=== PATIENT | female | born 1950 | race Two or more races ===

== ENCOUNTER → 2016-10-11 | Outpatient (CLI) | payer MEDICARE, BC ==
[~2016-10-11] MED LIST: ALEN35TA22 PO; AMLO-145 PO; ASPI81TA3 PO; AZAT50TA24 PO; BENA40TA54 PO; CALC1TAB75 PO; GABA300C16 PO; IBUP-1542 PO; IMU50 PO; MECL-77 PO; METO-53 PO; OMEP40CA3 PO; ONDA4TAB95 PO; TIOT18CA IH; [UNRECOGNIZED DRUG - OTHER]
--- NOTE | 2016-10-11 14:31 | RADRPT ---
PROCEDURE: XR pelvis/right hip. CLINICAL INDICATION: Hip pain TECHNIQUE: AP pelvis/lateral right hip view performed. COMPARISON: No prior studies are available for comparison. FINDINGS: There is a right total hip replacement. There is no evidence of loosening of the prosthesis. No hard waters failure is identified. There is mild to moderate left hip osteoarthrosis. This is associated with joint space narrowing, radford bchondral sclerosis and osteophytosis. There is diffuse osteopenia. There are old post traumatic ch anges involving the symphysis pubis. No acute fractures or osseous lesions are identified. The soft tissues are unremarkable. IMPRESSION: Right total hip replacement. Mild to moderate left hip osteoarthrosis. Diffuse osteopenia RPTAT: HGDB .Chris Moreno MD, Date Time Electronically viewed and signed by .Chris Moreno MD, on 10/11/2016 14:31 .B/
--- NOTE | 2016-10-11 19:05 | HKNOTE ---
DATE OF SERVICE: REQUESTING PROVIDER: Dr. Riso Andersen. MAIN COMPLAINT: Pain in the right hip. HISTORY OF MAIN COMPLAINT: The patient is a 66-year-old female who underwent a right total hip repl acement [address] Dumont. She states the hip was "fine" for the first 2 to 3 months. Th ereafter she developed pain in her right buttocks. Pain radiating down the back of the leg three-qu arters of the way down to the knee. No radiation below the knee. She has been back to see Dr. Dumont several times. He has not been able to give her a satisfactor y explanation as to the cause or treatment for the pain that she is having. She states that she is now worse than she was before surgery, and she is sorry she had the surgery. PRESENT COMPLAINTS: The patient gets pain in the right hip on waking up every morning. The pain se ems to improve a great deal around about 10 o'clock or so in the morning. She gets pain every day. Pain is aggravated by straining at stool, weightbearing, walking, and stair climbing. She occasion ally gets rest pain, but is not woken up with pain in the middle of the night. She has tried taking various pain medications, including tramadol, which she currently takes at the rate of 2 to 3 table ts a day. This is described by chemistry research assistant, Dr. Burks. She occasionally gets pain in her lower back. She has never had an MRI scan of her lumbar spine. S he has no numbness or tingling in her legs. She uses a cane most of the time, including inside the house. She can walk about 2 blocks using a cane without stopping. She limps most of the time. PAST ORTHOPEDIC HISTORY: Right total hip replacement [address] Dumont at [facility]. PRIOR CORTISONE INTAKE: The patient was put on prednisone, "for my thyroid." She taken 10 mg a day , and she stopped 4 days ago. ALCOHOL INTAKE: None. BLOOD TESTS FOR ARTHRITIS: None. PRIOR INJURIES TO HIPS OR KNEES: None. WORK STATUS: Patient is retired 4 years ago when she developed pain in the hip after the surgery. 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 PAST MEDICAL HISTORY: 1. Hypertension. 2. Chronic obstructive pulmonary disease. 3. Arthritis. PAST SURGICAL HISTORY: 1. Wrist surgery. 2. Hip replacement. 3. Gallbladder surgery. 4. Ovary surgery. DRUG ALLERGIES: NONE. MEDICATIONS: 1. Metoprolol. 2. Spiriva HandiHaler. 3. Meclizine. 4. ProAir HFA. 4. Symbicort. 6. Temazepam. 7. Alprazolam. 8. Amlodipine. 9. Lexapro. 10. Lisinopril. 11. Folic acid. 12. Levothyroxine. 13. Potassium chloride. 14. Tramadol. 15. Omeprazole. 16. Methotrexate. FAMILY HISTORY: Father at unstated age of diabetes. Mother at unstated age of cancer, di abetes, and heart problems. SYSTEMS REVIEW: Prone to dizzy spells and age-related failing vision. Persistent nausea. Excessiv e night urination. Hypertension. Occasional difficulty with breathing. Fainting spells. HABITS: Patient quit smoking many years ago. She smoked for 10 years. Alcohol beverage intake: N one. ADVERTISING SPACE CLERK: Dr. Rios Andersen, address [address] [place] [address], [place] [id number]. PHYSICAL EXAMINATION: GENERAL: The patient is a fragile looking 66-year-old female. She has a show shuffling gait. She walks with a cane. BACK: Range of motion: Flexion 50%, extension 50%, lateral flexion left 50%, lateral flexion right 50%, rotation left 50%, rotation right 50%. Pain at all limits of motion of the lumbar spine. NEUROLOGIC: Sensory testing (pinprick) reveals no deficit in the lower extremities. Motor examinati on reveals no muscle deficit in the lower extremities. Deep tendon reflexes in the lower extremities : Right knee jerk plus, left knee jerk plus, right ankle jerk plus, left ankle jerk plus. Straight leg raising is positive on the right at 85, negative on the left at 85. Lasegue and SHAYY tests are negative. HIPS: Examination of the right hip: Flexion is to 90 degrees. All other ranges are full. Pain in the right groin at the limits of motion. PAIN: The patient gets pain in her lower back and right buttocks at all the limits of motion of the left hip. IMAGING: Plain x-rays of the right hip obtained today show that she has had a hip replacement opera tion. The implant's apprentice plant attendant is not immediately apparent from the outlines on the most recent x -rays. The femoral component is well attached to the bone. The acetabular component may show a shona y thin line of lucency around the entire socket. The left hip is seen on these x-rays and appears t o be normal. Imaging of the lumbar spine obtained today to evaluate the knees (____) is reviewed. The knees are remarkably normal for a female of her age. The alignment is good. The intervertebral disk spaces a re well maintained. Facet joints appear to be intact. No sign of fracture or any other problem. P ossibly an old compression fracture of L5. DISCUSSION: A 66-year-old female who underwent a right hip replacement 4 years ago. At first the h ip was free of pain. She subsequently developed pain in the hip about 3 months later. Since then s he has not been pleased with the results of the hip replacement operation. Her symptoms are less radford ggestive of a hip problem than a lumbar radiculopathy. The main pain is in the right buttocks and r adiates down the right leg. Physical examination reveals that the right hip has an excellent pain-f ree range of motion. There is no tenderness in or around the hip. This patient's symptoms appear t o be all emanating from her lumbar spine rather than her right hip joint. The patient has persisted in the idea that her right hip must be the problem, but I assured her that I do believe the lumbar spine is the main source of her problem. MANAGEMENT: 1. The patient is being referred for an MRI scan of the lumbar spine. 2. MARS CAT scan of the right hip to rule out acetabular loosening. 3. CBC and sed rate. 4. C-reactive protein. 5. Serum cobalt and chromium. FINAL DIAGNOSES: 1. Status post right total hip replacement. 2. Complaint of pain the right "hip." 3. Symptoms and clinical findings suggesting a lumbar radiculopathy. Patient will return once all the above tests have been reviewed. Dictated By: ROBERT PAGE/LIEN Conf#: [id number] DID#: [id number]
--- NOTE | 2016-10-12 11:09 | RADRPT ---
PROCEDURE: XR Lumbar Spine. CLINICAL INDICATION: Back pain TECHNIQUE: 5 views of the lumbar spine available for review COMPARISON: None available FINDINGS: Right upper quadrant surgical clips. Right total hip replacement There is normal mineralization, architecture and alignment. No fracture or osseous lesion is identi fied. There is 2-3 mm of L5 on S1 anterolisthesis. There is moderate L5-S1 degenerative disk disea se. This is associated with disc space narrowing, endplate sclerosis and spondylosis. There is mode rate L5-S1 facet arthrosis. The soft tissues are unremarkable. There is abdominal aortic vascular c alcification. IMPRESSION: 2-3 mm L5 on S1 anterolisthesis Moderate L5-S1 degenerative disk disease Moderate L5-S1 facet arthrosis RPTAT: HGDB .Chris Moreno MD, Date Time Electronically viewed and signed by .Chris Moreno MD, on 10/12/2016 11:08 .B/
== END | disposition home or self-care (01) ==
LOC: HKI 14:01
DX: M25.551 Pain in right hip (principal); Z96.641 Presence of right artificial hip joint; I10 Essential (primary) hypertension
CPT/HCPCS: 72110; 73502; G0463

== ENCOUNTER → 2016-12-04 | Outpatient (CLI) | payer MEDICARE, BC ==
[~2016-12-04] MED LIST changes: +AZAT50TA31 PO; +HYDR-2932 PO; -IMU50 PO
--- NOTE | 2016-12-18 04:41 | HKNOTE ---
DATE OF SERVICE: 12/04/2016 HISTORY OF PRESENT ILLNESS: The patient had a right total hip replacement three years ago by Dr. Delgado. She continues to have pain in the right groin. She also has some pain in the right buttocks. The patient comes in for review of her CAT scan. The CAT scan of the right hip obtained on 11/26/2016 without contrast was reported as showing "femoral prosthetic component appears without prosthetic fracture. There is minimal lucency along the superolateral aspect of the acetabular prosthetic component, possibly representing low-grade loosening. No large cysts or erosive change otherwise evident." A MRI scan of the lumbar spine obtained on 11/22/[address] Natalee Overton as showing at L4-5 a diffuse disc bulge and facet hypertrophy, which mildly narrows the neural foramen without central canal stenosis. At L5, S1, there is an anterolisthesis and disc bulge without canal or foraminal stenosis. LABORATORY DATA: Dated 11/20/2016: C reactive protein 1.38. White cell count 5.8. No sedimentation rate was performed although it was requested. Note that her hemoglobin is 9.9. DISCUSSION: A 66-year-old female, who has previously undergone a right hip replacement. She has developed pain in the groin. She also has some pain in the right buttocks. The MRI scan of the lumbar spine does not indicate significant pathology. The CAT scan and plain x-rays suggest that the acetabular socket is loose. MANAGEMENT: Under sterile conditions, the right hip was aspirated of 20 cc of clear yellow fluid using lidocaine anesthesia. The fluid sent to the lab for cell count, culture and sensitivity. The fluid aspirated from the hip does not appeared to show infection although laboratory analysis is awaited. A sedimentation rate is also being ordered today. At her request, she is given a preescription for [place] 10/325. We await the report on the fluid culture before deciding how to proceed. The patient will be called with the result. Dictated By: Al Merchant MD /khadijah/jill /Document#: [id number]
== END | disposition home or self-care (01) ==
LOC: HKI 14:45
DX: M25.551 Pain in right hip (principal); Z47.1 Aftercare following joint replacement surgery; Z96.641 Presence of right artificial hip joint; R10.31 Right lower quadrant pain; M79.1 Myalgia
CPT/HCPCS: 20610

== ENCOUNTER → 2017-03-20 | Outpatient (CLI) | payer MEDICARE, BC ==
[~2017-03-20] MED LIST changes: -HYDR-2932 PO
--- NOTE | 2017-03-21 02:58 | HKNOTE ---
DATE OF SERVICE: MAIN COMPLAINT: Pain in the right hip. HISTORY OF MAIN COMPLAINT: The patient is a 66-year-old female who underwent a right total hip repl acement [address] Plascencia. She was fine for the first 2 months. Thereafter, after she developed pain in her right buttocks radiating down the back of her leg 3/[address] to the knee. She saw Dr. Plascencia several times for evaluation of the hip. He could find "nothing wrong." No treatment was suggested. She was first seen by me on 10/11/2016. Her symptoms were suggestive of a lumbar radiculopathy rather than a hip problem. She was referred for an MRI scan of the lumbar sp ine and a CAT scan of the right hip. Also, referred for CBC, sed rate, and C-reactive protein. X-rays of her hip obtained at that first visit seemed to show some lucency around the acetabular com ponent. She comes in today for reevaluation. Her lab findings on 12/17/2016, sedimentation rate was 55, C-reactive protein was 1.38. White cell count 5.8. A CAT scan of the right hip obtained on 11/26/[address] Overton as showing "minimal lucency along the superolateral aspect of the acetabular prosthetic component, possibly representing subtle low grade loosening." Patient continues to have pain. An MRI scan of the lumbar spine obtained on 10/11/2016 is reported as showing "at L5-S1, anterolisthesis 2 to 3 mm. At L5-S1, moderate degenerative disk disease. At L5-S1, moderate facet arthrosis." Patient comes in now for reevaluation of her studies and determination of what, if anything, should be done for her. The elevated sedimentation rate and C-reactive protein are suggestive of underlying infection. MANAGEMENT: The patient is being referred for: 1. Technetium scan. 2. indium scan. 3. Repeat CBC and sed rate. 4. C-reactive protein. 5.. Consultation with Dr. Dong. Dictated By: ROBERT PAGE/LIEN Conf#: [id number] DID#: [id number]
== END | disposition home or self-care (01) ==
LOC: HKI 09:40
DX: M25.551 Pain in right hip (principal); M51.36 Other intervertebral disc degeneration, lumbar region; Z96.641 Presence of right artificial hip joint
CPT/HCPCS: G0463

== ENCOUNTER → 2017-11-04 | Outpatient (CLI) | END | disposition home or self-care (01) ==

== ENCOUNTER → 2018-07-28 | Outpatient (CLI) | payer MEDICARE, BC ==
[~2018-07-28] MED LIST changes: +ASPI-831 PO; -ASPI81TA3 PO
--- NOTE | 2018-07-28 12:20 | PN ---
Date/Time of Note Date/Time of Note DATE: 07/28/18 TIME: 12:20 Assessment/Plan VTE Prophylaxis Pharmacological prophylaxis: other Assessment/Plan Assessment/Plan 68-year-old female who is scheduled for a revision of her right total hip replacement next week. Preoperative visit was completed. Risks and benefits of surgical treatment have been discussed with the patient including but not limit ed to bleeding, infection, scarring and stiffness, injury to nerves and vessels, fracture and dislocation, leg length inequality, DVT and PE, implant failure and need for further surgery. The patient understands and wishes to proceed Subjective 24 Hr Interval Summary Free Text/Dictation 68-year-old lady who is here for a preoperative visit related to right hip surgery scheduled for next week. ELEUTERIO LE Jul 28, 2018 12:20
== END | disposition home or self-care (01) ==
LOC: HKI 11:12
PROVIDERS: ATTEND Orthopaedic Surgery
DX: Z01.818 Encounter for other preprocedural examination (principal)
CPT/HCPCS: G0463

== ENCOUNTER 2018-08-07 07:30 | Inpatient (IN) | payer MEDICARE, BC ==
[2018-07-31 14:38] VITALS: Ht 152.4 cm; Wt 60.0 kg
--- NOTE | 2018-08-03 13:05 | PREOPHP ---
DATE OF ADMISSION: 08/07/2018 The patient is to have surgery with Dr. Eleuterio Le on 08/07/2018. Consultation requested by Dr. Eleuterio Le for medical evaluation and clearance of a 68-year-old luis johnson about to undergo surgery. Thank you, Dr. Le for allowing us to participate in the care of this patient. Renu Garcia, a 68-year-old woman, is suffering from rheumatoid arthritis, has had a total hip repl acement done on the right which has currently failed and is being admitted for redo of total hip repl acement on the right. PAST MEDICAL HISTORY: She has been admitted for respiratory failure and cardiac issues secondary to COPD and minor heart failure. Other than that, she has been relatively stable medically. PAST SURGICAL HISTORY: Includes an appendectomy, left ovary removed, open cholecystectomy, total hip replacement on the right, open reduction and internal fixation of fractured right wrist. Other than her right wrist, she has not broken any other bones. CURRENT MEDICATIONS: Include the followin. Levothyroxine 100 mcg a day. 2. Tramadol 50 mg 1 to 3 times a day. 3. Lasix 20 mg daily. 4. Spiriva 2 puffs daily. 5. Symbicort 160/4.5 mcg b.i.d. 6. Folic acid 400 mcg daily. 7. Lexapro 10 mg a day. 8. Metoprolol tartrate 25 mg b.i.d. 9. Klor-Con 20 mEq 1 p.o. b.i.d. 10. She is currently taking an injectable for her rheumatoid arthritis. ALLERGIES: SHE IS NOT ALLERGIC TO ANY MEDICATIONS. SOCIAL HISTORY: The patient is single, has no children. She still smokes approximately 3 to 4 cigar ettes a day. No alcohol. Does drink coffee. Has no difficulty sleeping at night. FAMILY HISTORY: Both parents . Father at age 60, had hypertension issues and possibly pneumonia. Mother age 82 of old age, had breast cancer. One brother of diabetes and hypertensi on. One brother is alive. Family history of diabetes, heart, cancer, hypertension and stroke. REVIEW OF SYSTEMS HEENT: Periodic tension headaches. CARDIORESPIRATORY: Denies any chest pain or shortness of breath. GASTROINTESTINAL: No melena or hematemesis. GENITOURINARY: No urgency or frequency. GYNECOLOGIC: Post-menopause and up-to-date. MUSCULOSKELETAL: Positive for right hip pain. NEUROPSYCHIATRIC: Unremarkable. GENERAL HEALTH: As above. PHYSICAL EXAMINATION: VITAL SIGNS: The patient's blood pressure was 138/80, pulse was 80 and regular, respirations were 18 , temperature 98.2, height 4 feet and 10-1/2 inches, weight 130.2 pounds. GENERAL: The patient was noted to be a well-developed, well-nourished female, alert and cooperative, in no apparent acute distress, oriented to time, place and person. HEENT: Head was atraumatic. Eyes: Pupils were equal, reactive to light and accommodation. Fundi w ere benign. Tympanic membranes were unremarkable. Nose was negative. Mouth was unremarkable. Fair oral hygiene was present. NECK: Supple without any rigidity. Trachea was midline. Thyroid was within normal limits. Neck ve ins were flat. Carotid pulses were equal. No bruits were heard. BACK: Unremarkable. CHEST: Symmetrical. BREASTS AND AXILLARY: Did not reveal any masses. LUNGS: Basically clear to percussion and auscultation. Scattered wheezes were noted. No rales; how ever, were noted. HEART: PMI was 5th intercostal space at the midclavicular line. A regular sinus rhythm was noted. No significant murmurs, rubs, or gallops being elicited. ABDOMEN: Soft. Good bowel sounds were noted. Multiple scars from prior surgery were noted. No sig nificant organomegaly, masses or tenderness. GENITALIA, PELVIC AND RECTAL: Up-to-date per gear cutting machine operator. EXTREMITIES: Did not reveal any clubbing, edema or cyanosis. Deformities from rheumatoid arthritis were noted and scar from prior total hip replacement was noted as well. Peripheral pulses were physi ologic. SKIN: Moist and warmth without any eruptions. No gross lymphadenopathy was noted. NEUROLOGIC: Grossly intact. IMPRESSION: 1. 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 2. Rheumatoid arthritis. 3. Chronic obstructive pulmonary disease. 4. Hypothyroidism. 5. Hypertension. 6. Postmenopause. 7. Stable health. REVIEW OF LABORATORY AND OTHER DATA: Revealed the following: The patient's chemistry panel revealed normal electrolytes. Random glucose was 158. BUN, creatinine, calcium, uric acid, proteins were no rmal. Alkaline phosphatase was minimally elevated as was her AST at 55. Iron was normal. TSH was s lightly suppressed. CBC, sed rate, UA revealed moderate amount of red cells, moderate leukocytes, no bacteria however were noted. PT and PTT were normal. The patient's EKG revealed a left axis and no nspecific ST-T wave changes. The patient's chest x-ray revealed kyphosis and degenerative joint dise ase. No acute infiltrates were noted nor were there any acute cardiopulmonary changes being noted. DISCUSSION: Dr. Le, I have taken the liberty to have the patient to get a clearance from her car diologist. She is already seen her radiology technician, Dr. Rodriguez, who will be available should the need arise while she is at [facility]. Dr. Zuniga's group will be evaluating her preoperatively . Should she obtained cardiac clearance from my standpoint, I see no contraindication to this patien t undergoing current proposed surgery under desired form of anesthesia, keeping in mind however that she does have a history of COPD with decompensation in the past. Thank you again, Dr. Le, for allowing us to participate in care of this patient. Dictated By: MORAIMA MARTIN MD SS/NTS Conf#: [id number] DID#: [id number] CC: ELEUTERIO LE MD;*End*
[2018-08-07] VITALS (26 sets, daily range): BP systolic 107–156; BP diastolic 58–106; PULSE 56–80; RESP 12–25
[~2018-08-07] VITALS: Ht 152.4 cm; Wt 60.0 kg
[2018-08-07] MEDS ORDERED: CEFAZOLIN 2 GM/50 ML (PMX) 50 ML IVPB ONE (08:00)
[2018-08-07] MEDS ORDERED: TRANEXAMIC ACID 1GM/100ML(PMX) 100 ML PRE-OP X1 IVPB ONE (08:00)
[2018-08-07] MEDS ORDERED: LACTATED RINGER'S 1,000 ML IV* SCH (08:00)
[2018-08-07] MEDS ORDERED: DEXAMETHASONE 4 MG/ML 1 ML INJ IV ONE (08:00)
[2018-08-07] MEDS ORDERED: TRANEXAMIC ACID 1GM/100ML(PMX) 100 ML INTRA-OP X1 IVPB ONE (08:00)
[2018-08-07] MEDS ORDERED: ACETAMINOPHEN 500 MG TAB PO ONE (08:00)
[2018-08-07] MEDS ORDERED: TOCI80VI IV (09:01)
[2018-08-07] MEDS ORDERED: FOLI-49 PO (09:01)
[2018-08-07] MEDS ORDERED: LEVO100T8 PO (09:01)
[2018-08-07] MEDS ORDERED: TIOT18CA INHALATION (09:01)
[2018-08-07] MEDS ORDERED: ALBU8.5H8 INH (09:01)
[2018-08-07] MEDS ORDERED: ALPR0.5T6 PO (09:01)
[2018-08-07] MEDS ORDERED: POTA20TA9 PO (09:01)
[2018-08-07] MEDS ORDERED: CALC-143 PO (09:01)
[2018-08-07] MEDS ORDERED: BUDE6HFA INHALATION (09:01)
[2018-08-07] MEDS ORDERED: ZOLP5TAB7 PO (09:01)
[2018-08-07] MEDS ORDERED: METO-319 PO (09:01)
[2018-08-07] MEDS ORDERED: TRAM50TA PO (09:02)
[2018-08-07] MEDS ORDERED: SERT50TA6 PO (09:03)
--- NOTE | 2018-08-07 09:36 | HPN ---
Date/Time of Note Date/Time of Note DATE: 08/07/18 TIME: 09:36 Interval H&P Admission Note Pt. seen H&P reviewed: No system changes ELEUTERIO LE Aug 07, 2018 09:36
--- NOTE | 2018-08-07 10:26 | PREAC ---
Date/Time of Note Date/Time of Note DATE: 08/07/18 TIME: 10:24 Anesthesia Eval and Record Evaluation Time Pre-Procedure Interview DATE: 08/07/18 TIME: 10:24 Age 68 Sex female NPO: 8 hrs Preoperative diagnosis right hip osteoarthritis Planned procedure right total hip revision Past Medical History Past Medical History: Includes Cardio: HTN Endo: Hypothyroid Pulm: COPD Surgery & Anesthesia Issues No known issue Meds Anticoagulation: No Beta Benjy within 24 hr: Yes Reported Medications Sertraline Hcl* (Sertraline Hcl*) 50 Mg Tablet, 50 MG PO DAILY, #30 TAB 08/07/18 Tramadol Hcl* (Ultram*) 50 Mg Tablet, 50 MG PO Q6H PRN for PAIN, TAB 08/07/18 Tocilizumab (Actemra) 80 Mg/4 Ml Vial, 80 MG IV [id number], VIAL 08/07/18 Albuterol Sulfate* (Proair HFA*) 8.5 Gm Hfa.aer.ad, 2 PUFF INH Q6H PRN for WHEEZING AND SOB, #1 INHALER 08/07/18 Tiotropium Evans* (Spiriva*) 18 Mcg Cap.w.dev, 1 CAP INHALATION DAILY, #30 CAP 08/07/18 Metoprolol Succinate* (Toprol XL*) 50 Mg Tab.er.24h, 50 MG PO DAILY, #30 TAB 08/07/18 Levothyroxine Sodium* (Levothyroxine Sodium*) 100 Mcg Tablet, 100 MCG PO BEFORE BREAKFAST, #30 TAB 08/07/18 Alprazolam* (Alprazolam*) 0.5 Mg Tablet, 0.5 MG PO Q8H PRN for ANXIETY, TAB 08/07/18 Zolpidem Tartrate* (Zolpidem Tartrate*) 5 Mg Tablet, 5 MG PO QHS PRN for INSOMNIA, #30 TAB 08/07/18 Calcium Citrate/Vitamin D (Citracal-Vitamin D 200 MG-250) 1 Each Tablet, 1 TAB PO BID, TAB 08/07/18 Folic Acid* (Folic Acid*) 1 Mg Tablet, 1 MG PO DAILY, TAB 08/07/18 Potassium Chloride (Klor-Con M20) 20 Meq Tab.prt.sr, 20 MEQ PO DAILY 08/07/18 Budesonide-Formoterol Fumarate* (Symbicort*) 160-4.5 Hfa.aer.ad, 2 PUFF INHALATION BID, #1 EACH 08/07/18 Meclizine Hcl* (Meclizine Hcl*) 25 Mg Tablet, 25 MG PO DAILY PRN for VERTIGO 11/18/12 Omeprazole* (Prilosec*) 40 Mg Capsule.dr, 40 MG PO DAILY 11/18/12 Discontinued Reported Medications Azathioprine* (Imuran*) 50 Mg Tab, 50 MG PO DAILY 05/14/13 Alendronate Sodium (Fosamax) 35 Mg Tablet, 35 MG PO 05/14/13 Ibuprofen* (Ibuprofen*) 600 Mg Tablet, 600 MG PO PRN 11/18/12 Aspirin (Aspirin) 81 Mg Chew, 81 MG PO DAILY 11/18/12 Metoprolol (Lopressor) 50 Mg Tablet, 50 MG PO DAILY 11/18/12 Benazepril Hcl* (Lotensin*) 40 Mg Tablet, 40 MG PO DAILY 11/18/12 [Planequil] No Conflict Check, 200 MG DAILY 11/18/12 Calcium Carbonate/Vitamin D2* (Os-Abel 250+D*) 1 Tab Tablet, 1 TAB PO DAILY 11/18/12 Tiotropium Evans* (Spiriva*) 18 Mcg Cap.w.dev, 18 MCG IH 11/18/12 Ondansetron Hcl* (Ondansetron Hcl*) 4 Mg Tablet, 4 MG PO PRN 11/18/12 Amlodipine Besylate* (Amlodipine Besylate*) 5 Mg Tablet, 5 MG PO DAILY 11/18/12 Gabapentin* (Gabapentin*) 300 Mg Capsule, 300 MG PO TID 11/18/12 Azathioprine (Azathioprine) 50 Mg Tablet, 50 MG PO DAILY 11/18/12 Current Medications Lactated Ringer's 1,000 ml @ 125 mls/hr Q8H IV* ; Start 08/07/18 at 08:00; Stop 08/07/18 at 15:59 Meds reviewed: Yes Allergies Coded Allergies: No Known Drug Allergy (Verified Allergy, Unknown, 08/07/18) Allergies Reviewed: Yes Labs/Studies Labs Reviewed: Reviewed by anesthesiologist Blood Bank Test 08/07/18 08:25 Antibody Screen NEGATIVE Blood Type O POSITIVE test: N/A Studies: ECG, CXR Pre-procedure Exam Last vitals Vital Signs Date Temp Pulse Resp B/P (MAP) Pulse Ox O2 O2 Flow FiO2 Time Delivery Rate 08/07/18 98.2 67 16 136/88 100 Room Air 09:05 (104) Airway: Adequate mouth opening, Adequate thyromental dist Mallampati: Mallampati I Teeth: Normal Lung: Normal Heart: Normal ASA Physical Status ASA physical status: 2 Emergency: None Planned Anesthetic General/MAC: ETT, LMA Neuraxial: Spinal Planned Pain Management Parenteral pain med Pre-operative Attestations Prior to commencing anesthesia and surgery, the patient was re-evaluated, there was verification of: *The patient's identity *The results of appropriate recent lab work and preoperative vital signs *The above evaluation not changing prior to induction *Anesthetic plan, risk benefits, alternative and complications discussed with patient/family; questions answered; patient/family understands, accepts and wishes to proceed. JENNIFER VIRAMONTES Aug 07, 2018 10:26
[2018-08-07] MEDS ORDERED: TRANEXAMIC ACID 1GM/100ML(PMX) 200 ML ONE (10:36)
[2018-08-07] MEDS ORDERED: POLYMYXIN B 500000 UNIT INJ ONE (10:36)
[2018-08-07] MEDS ORDERED: POLYMYXIN/BACITRACIN 1L IRRIG ONE (10:36)
[2018-08-07] MEDS ORDERED: BACITRACIN 50000 UNITS INJ IRR ONE (11:53)
--- NOTE | 2018-08-07 12:38 | SIPON ---
Date/Time of Note Date/Time of Note DATE: 08/07/18 TIME: 12:37 Operative Report Preoperative Diagnosis Failed right total hip replacement Postoperative Diagnosis Same Operation/Procedure Performed Revision of right total knee replacement Surgeon see signature line assistant federal public defender FLOW SPECIALIST Anesthesia: spinal Estimated blood loss: 150 - 200 ml's Transfusion Required none Specimen Cultures Grafts/Implants Brogue hip, 56 mm cup, 36 mm ceramic head Complications none ELEUTERIO LE Aug 07, 2018 12:38
[2018-08-07] MEDS ORDERED: LABETALOL HCL 20MG INJ IV PRN (13:00)
[2018-08-07] MEDS ORDERED: NACL 0.9% 3 ML SYG IV SCH (13:00)
[2018-08-07] MEDS ORDERED: MIDAZOLAM 1 MG/ML 2 ML INJ IV PRN (13:00)
[2018-08-07] MEDS ORDERED: EPHEDrine SULFATE 50 MG/5 ML SYG IV PRN (13:00)
[2018-08-07] MEDS ORDERED: ONDANSETRON 4 MG INJ IV PRN (13:00)
[2018-08-07] MEDS ORDERED: DIPHENHYDRAMINE 50 MG INJ IV PRN (13:00)
[2018-08-07] MEDS ORDERED: hydrALAzine 20 MG INJ IV PRN (13:00)
[2018-08-07] MEDS ORDERED: MAGNESIUM HYDROXIDE 30ML CUP PO PRN (13:00)
[2018-08-07] MEDS ORDERED: FENTAnyl 50 MCG/ML VIAL IV PRN ×3 (13:00)
[2018-08-07] MEDS ORDERED: HYDROmorphONE 1 MG/5 ML IV SYRINGE IV PRN ×3 (13:00)
[2018-08-07] MEDS ORDERED: ALBUTEROL 0.083% (NEB) 2.5 MG/3 ML AMP HHN PRN (13:00)
[2018-08-07] MEDS ORDERED: MEPERIDINE 25 MG INJ IV PRN (13:00)
[2018-08-07] MEDS ORDERED: NALOXONE (0.4 MG/ML) INJ IV PRN (13:00)
[2018-08-07] MEDS ORDERED: oxyCODONE 5 MG TAB PO PRN (13:00)
[2018-08-07] MEDS ORDERED: METOCLOPRAMIDE 10 MG INJ IV PRN (13:00)
--- NOTE | 2018-08-07 13:11 | PAC ---
Date/Time of Note Date/Time of Note DATE: 08/07/18 TIME: 13:11 Post-Anesthesia Notes Post-Anesthesia Note Last documented vital signs Vital Signs Date Temp Pulse Resp B/P (MAP) Pulse Ox O2 O2 Flow FiO2 Time Delivery Rate 08/07/18 98.2 67 16 136/88 100 Room Air 1311 (104) Activity: WNL Respiratory function: WNL Cardiovascular function: WNL Mental status: Baseline Pain reasonably controlled: Yes Hydration appropriate: Yes Nausea/Vomiting absent: Yes JENNIFER VIRAMONTES Aug 07, 2018 13:11
[2018-08-07] MEDS ORDERED: ONDANSETRON 4 MG INJ ONE (13:14)
--- NOTE | 2018-08-07 14:49 | OPR ---
Date/Time of Note Date/Time of Note DATE: 08/07/18 TIME: 14:44 Operative Report Procedure Date: Aug 07, 2018 Preoperative Diagnosis Failed right total hip replacement Postoperative Diagnosis Same Operation/Procedure Performed Revision of right total hip replacement Surgeon see signature line Casing Inspector GEOVANNA Anesthesia Type: spinal Estimated Blood Loss: 250 - 300 ml's Transfusion none Specimen Cultures Grafts/Implants Right medical stem, 36 mm +7 head, 56 mm [place] cup, cross-link polyethylene Tubes/Drains None Complications none Pt Condition Post Procedure: stable Disposition: PACU Indications Patient is a 68-year-old female with progressive pain in her right total hip replacement. She is found to have loosening of the implants especially on the acetabular component Procedure Description Patient was placed supine on the operating room table. The right hip was prepped and draped in the usual manner. An anterior incision was made. The plane between the sartorius and tensor fascia león was developed in a blunt fashion. Branches of the circumflex vessels were identified and cauterized with aqua mantis. The hip capsule was opened and cultures obtained. A small effusion was encountered. There was no clear evidence of infection or metallosis. 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 The hip was dislocated, femoral head was removed. The acetabular component was exposed the liner was removed and one screw from t he acetabulum was removed. Using the explant, the acetabular component was removed. There was no significant attachment of the acetabular component confirming that this component was loose. Reaming of the acetabulum was done up to a size 55-56 trial cup was well fitting. There was a bony defect in the central portion of the acetabulum. This was filled with 15 mL of cancellous bone chips and bone graft substitute from the [employer]. The 56 revision cup was then placed in 40 degrees of abduction and 20 degrees of anteversion. 2 screws were used to enhance fixation. Liner was placed to accommodate a 36 mm femoral head. On the femoral side, a 36 mm ceramic revision head was placed with an extra long sleeve the head was from the [employer]. The hip was stable with equal leg length. X-rays confirm proper alignment of the implants. Once satisfactory alignment was confirmed the wound was thoroughly irrigated and injected with Marcaine, Toradol and pain cocktail. The wound was closed in layers using #1 strata fix for deep fascia, 2-0 Vicryl for subcutaneous tissue and 3-0 Monocryl for the skin. The patient was transferred to the recovery room in stable condition ELEUTERIO EL Aug 07, 2018 14:49
[2018-08-07] MEDS: LACTATED RINGER'S 1,000 ML IV SCH ×2 (15:31→15:40)
[2018-08-07] MEDS: KETOROLAC 15 MG INJ IV PRN (15:33)
[2018-08-07] MEDS: GABAPENTIN 100 MG CAP PO SCH ×2 (15:40→20:17)
--- NOTE | 2018-08-07 17:24 | CONS ---
Consult Date/Type/Reason Admit Date/Time Aug 07, 2018 at 07:30 Initial Consult Date 07/28/2018 Type of Consultation: internal medicine Reason for Consultation pre-op medical evaluation and clearance Requesting Provider: ELEUTERIO LE Date/Time of Note DATE: 08/07/18 TIME: 17:14 Subjective post-op in room no complaints Objective Vitals Vital Signs Date Temp Pulse Resp B/P (MAP) Pulse Ox O2 O2 Flow FiO2 Time Delivery Rate 08/07/18 69 18 130/59 98 Room Air 15:43 (82) 08/07/18 98.1 15:13 08/07/18 2.0 13:32 Exam vital signs stable HEENT negative lungs scattered wheezes heart regular rhythm Results/Medications Results 24 hrs Laboratory Tests Test 08/07/18 13:10 Urine Color YELLOW Urine Clarity CLOUDY A Urine pH 7.0 Urine Specific [place] 1.010 Urine Ketones NEGATIVE Urine Nitrite NEGATIVE Urine Bilirubin NEGATIVE Urine Urobilinogen NEGATIVE Urine Leukocyte Esterase 3+ H Urine Microscopic RBC 27 H Urine Microscopic WBC > 182 H Urine Bacteria MODERATE Urine Mucus FEW A Urine Hemoglobin 2+ H Urine Glucose NEGATIVE Urine Total Protein NEGATIVE Home Meds Reported Medications Sertraline Hcl* (Sertraline Hcl*) 50 Mg Tablet, 50 MG PO DAILY, #30 TAB 08/07/18 Tramadol Hcl* (Ultram*) 50 Mg Tablet, 50 MG PO Q6H PRN for PAIN, TAB 08/07/18 Tocilizumab (Actemra) 80 Mg/4 Ml Vial, 80 MG IV [id number], VIAL 08/07/18 Albuterol Sulfate* (Proair HFA*) 8.5 Gm Hfa.aer.ad, 2 PUFF INH Q6H PRN for WHEEZING AND SOB, #1 INHALER 08/07/18 Tiotropium [place]* (Spiriva*) 18 Mcg Cap.w.dev, 1 CAP INHALATION DAILY, #30 CAP 08/07/18 Metoprolol Succinate* (Toprol XL*) 50 Mg Tab.er.24h, 50 MG PO DAILY, #30 TAB 08/07/18 Levothyroxine Sodium* (Levothyroxine Sodium*) 100 Mcg Tablet, 100 MCG PO BEFORE BREAKFAST, #30 TAB 08/07/18 Alprazolam* (Alprazolam*) 0.5 Mg Tablet, 0.5 MG PO Q8H PRN for ANXIETY, TAB 08/07/18 Zolpidem Tartrate* (Zolpidem Tartrate*) 5 Mg Tablet, 5 MG PO QHS PRN for INSOMNIA, #30 TAB 08/07/18 Calcium Citrate/Vitamin D (Citracal-Vitamin D 200 MG-250) 1 Each Tablet, 1 TAB PO BID, TAB 08/07/18 Folic Acid* (Folic Acid*) 1 Mg Tablet, 1 MG PO DAILY, TAB 08/07/18 Potassium Chloride (Klor-Con M20) 20 Meq Tab.prt.sr, 20 MEQ PO DAILY 08/07/18 Budesonide-Formoterol Fumarate* (Symbicort*) 160-4.5 Hfa.aer.ad, 2 PUFF INHALATION BID, #1 EACH 08/07/18 Meclizine Hcl* (Meclizine Hcl*) 25 Mg Tablet, 25 MG PO DAILY PRN for VERTIGO 11/18/12 Omeprazole* (Prilosec*) 40 Mg Capsule.dr, 40 MG PO DAILY 11/18/12 Discontinued Reported Medications Azathioprine* (Imuran*) 50 Mg Tab, 50 MG PO DAILY 05/14/13 Alendronate Sodium (Fosamax) 35 Mg Tablet, 35 MG PO 05/14/13 Ibuprofen* (Ibuprofen*) 600 Mg Tablet, 600 MG PO PRN 11/18/12 Aspirin (Aspirin) 81 Mg Chew, 81 MG PO DAILY 11/18/12 Metoprolol (Lopressor) 50 Mg Tablet, 50 MG PO DAILY 11/18/12 Benazepril Hcl* (Lotensin*) 40 Mg Tablet, 40 MG PO DAILY 11/18/12 [Planequil] No Conflict Check, 200 MG DAILY 11/18/12 Calcium Carbonate/Vitamin D2* (Os-Abel 250+D*) 1 Tab Tablet, 1 TAB PO DAILY 11/18/12 Tiotropium [place]* (Spiriva*) 18 Mcg Cap.w.dev, 18 MCG IH 11/18/12 Ondansetron Hcl* (Ondansetron Hcl*) 4 Mg Tablet, 4 MG PO PRN 11/18/12 Amlodipine Besylate* (Amlodipine Besylate*) 5 Mg Tablet, 5 MG PO DAILY 11/18/12 Gabapentin* (Gabapentin*) 300 Mg Capsule, 300 MG PO TID 11/18/12 Azathioprine (Azathioprine) 50 Mg Tablet, 50 MG PO DAILY 11/18/12 Medications Current Medications Lactated Ringer's 1,000 ml @ 80 mls/hr [id number] IV Last administered on 08/07/18at 15:40; Admin Dose 80 MLS/HR; Start 08/07/18 at 12:39 Oxycodone HCl (Roxicodone) 10 mg Q4H PRN PO .PAIN; Start 08/07/18 at 13:00 Oxycodone HCl (Roxicodone) 5 mg Q4H PRN PO .PAIN; Start 08/07/18 at 13:00 Ondansetron HCl (Zofran Inj) 4 mg Q4H PRN IV NAUSEA/VOMITING; Start 08/08/18 at 13:00 Cefazolin Sodium/ Dextrose 50 ml @ 100 mls/hr Q8H IVPB ; Start 08/07/18 at 16:00; Stop 08/08/18 at 08:29 Celecoxib (Celebrex) 100 mg BID PO ; Start 08/08/18 at 09:00 Gabapentin (Neurontin) 100 mg TID PO Last administered on 08/07/18at 15:40; Admin Dose 100 MG; Start 08/07/18 at 14:00 Pantoprazole (Protonix Tab) 40 mg DAILY@06 PO ; Start 08/08/18 at 06:00 Docusate Sodium (Colace) 200 mg BID PO ; Start 08/08/18 at 09:00; Stop 08/10/18 at 21:01 Magnesium Hydroxide (Milk Of Mag) 30 ml HS PRN PO .CONSTIPATION; Start 08/07/18 at 13:00 Ketorolac Tromethamine (Toradol) 15 mg Q6H PRN IV .PAIN Last administered on 08/07/18at 15:33; Admin Dose 15 MG; Start 08/07/18 at 13:00 Naloxone HCl (Narcan) 0.2 mg Q2M PRN IV .RESP RATE; Start 08/07/18 at 13:00 IV Flush (NS 3 ml) 3 ml per protocol IV ; Start 08/07/18 at 13:00 Aspirin (Halfprin) 81 mg BID PO ; Start 08/08/18 at 09:00 Albuterol (Ventolin Hfa) 2 puff Q6H PRN INH WHEEZING AND SOB; Start 08/07/18 at 17:30; Status UNV Alprazolam (Xanax) 0.5 mg Q8H PRN PO ANXIETY; Start 08/07/18 at 17:30; Status UNV Folic Acid (Folic Acid) 1 mg DAILY PO ; Start 08/08/18 at 09:00; Status UNV Levothyroxine Sodium (Synthroid) 100 mcg BEFORE BREAKFAST PO ; Start 08/08/18 at 07:00; Status UNV Meclizine HCl (Antivert) 25 mg DAILY PRN PO ; Start 08/07/18 at 17:30; Status UNV Metoprolol Succinate (Toprol Xl) 50 mg DAILY PO ; Start 08/08/18 at 09:00; Status UNV Potassium Chloride (Klor-Con 20) 20 meq DAILY PO ; Start 08/08/18 at 09:00; Status UNV Sertraline HCl (Zoloft) 50 mg DAILY PO ; Start 08/08/18 at 09:00; Status UNV Tramadol HCl (Ultram) 50 mg Q6H PRN PO PAIN; Start 08/07/18 at 17:30; Status UNV Zolpidem Tartrate (Ambien) 5 mg QHS PRN PO INSOMNIA; Start 08/07/18 at 17:30; Status UNV Miscellaneous Information 2 puff BID INHALATION ; Start 08/07/18 at 21:00; Status UNV Miscellaneous Information 1 tab BID PO ; Start 08/07/18 at 21:00; Status UNV Miscellaneous Information 40 mg DAILY PO ; Start 08/08/18 at 09:00; Status UNV Assessment/Plan Hospital Course (Demo Recall) patient post op hip replacement with multiple medical issue including COPD and hypertension. pre-op meds ordered will follow with you thank you for partici pating and allowing us to participate in the care of our patient. ti Assessment/Plan (Daily) will follow with you thank you MORAIMA Colindres MD Aug 07, 2018 17:24
[2018-08-07] MEDS ORDERED: ALBUTEROL HFA 8 GM INHALER INH PRN (17:30)
[2018-08-07] MEDS ORDERED: ALPRAZOLAM 0.5 MG TAB PO PRN (17:30)
[2018-08-07] MEDS ORDERED: MECLIZINE 25 MG TAB PO PRN (17:30)
[2018-08-07] MEDS ORDERED: ZOLPIDEM 5 MG TAB PO PRN (17:30)
[2018-08-07] MEDS ORDERED: traMADol 50 MG TAB PO PRN (17:30)
[2018-08-07] MEDS: CEFAZOLIN 2 GM/50 ML (PMX) 50 ML IVPB SCH (17:55)
[2018-08-07] MEDS: CALCIUM/VITAMIN D (500/200) TAB PO SCH (20:17)
[2018-08-07] MEDS ORDERED: GUAIFENESIN LA 600 MG TABSR PO PRN (23:00)
[2018-08-07] MEDS: oxyCODONE 5 MG TAB PO PRN (23:12)
[2018-08-08 00:26] VITALS: BP 138/75; RESP 20
[2018-08-08] MEDS: CEFAZOLIN 2 GM/50 ML (PMX) 50 ML IVPB SCH ×2 (00:42→07:56)
[2018-08-08] MEDS: oxyCODONE 5 MG TAB PO PRN ×2 (04:31→13:20)
[2018-08-08 04:34] VITALS: BP 137/73; PULSE 63; RESP 18
[2018-08-08] MEDS: LEVOTHYROXINE 100 MCG TAB PO SCH (06:23)
[2018-08-08] MEDS: PANTOPRAZOLE (EC) 40 MG TAB PO SCH (06:23)
[2018-08-08 07:45] VITALS: BP 134/72; PULSE 67; RESP 18
--- NOTE | 2018-08-08 07:57 | CONS ---
Consult Date/Type/Reason Admit Date/Time Aug 07, 2018 at 07:30 Initial Consult Date 07/28/2018 Type of Consultation: internal medicine Reason for Consultation post-op medical f/u and management Requesting Provider: ELEUTERIO LE Date/Time of Note DATE: 08/08/18 TIME: 07:52 Subjective complaining of right hip arae pain severe breathing OK Objective Vitals Vital Signs Date Temp Pulse Resp B/P (MAP) Pulse Ox O2 O2 Flow FiO2 Time Delivery Rate 08/08/18 98.0 63 18 137/73 99 Room Air 04:34 (94) 08/07/18 2.0 13:32 Intake and Output 08/07/18 08/07/18 08/08/18 1515:00 23:00 07:00 IntakeIntake Total 2000 ml 610 ml 1450 ml OutputOutput Total 350 ml 800 ml 1200 ml BalanceBalance 1650 ml -190 ml 250 ml Exam vital signs stable HEENT negative lungs relatively clear scattered rhonchi heart regular rhythm Results/Medications Result Diagram: 08/08/18 0425 08/08/18 0425 Results 24 hrs Laboratory Tests Test 08/07/18 13:10 08/08/18 04:25 08/08/18 07:29 Urine Color YELLOW Urine Clarity CLOUDY A Urine pH 7.0 Urine Specific [place] 1.010 Urine Ketones NEGATIVE Urine Nitrite NEGATIVE Urine Bilirubin NEGATIVE Urine Urobilinogen NEGATIVE Urine Leukocyte Esterase 3+ H Urine Microscopic RBC 27 H Urine Microscopic WBC > 182 H Urine Bacteria MODERATE Urine Mucus FEW A Urine Hemoglobin 2+ H Urine Glucose NEGATIVE Urine Total Protein NEGATIVE White Blood Count 6.5 Red Blood Count 3.47 L Hemoglobin 10.2 L Hematocrit 31.5 L Mean Corpuscular Volume 90.8 Mean Corpuscular Hemoglobin 29.4 Mean Corpuscular 32.4 Hemoglobin Concent Red Cell Distribution Width 15.0 H Platelet Count 72 L Mean Platelet Volume 11.0 H Immature Granulocytes % 0.500 H Neutrophils % 85.0 H Lymphocytes % 10.2 L Monocytes % 4.3 Eosinophils % 0.0 Basophils % 0.0 Nucleated Red Blood Cells % 0.0 Immature Granulocytes # 0.030 Neutrophils # 5.5 Lymphocytes # 0.7 L Monocytes # 0.3 Eosinophils # 0.0 Basophils # 0.0 Nucleated Red Blood Cells # 0.0 Sodium Level 141 Potassium Level 4.0 Chloride Level 110 Carbon Dioxide Level 23 Anion Gap 8 Blood Urea Nitrogen 18 Creatinine 0.99 Est Glomerular Filtrat 55 L Rate mL/min Glucose Level 112 Calcium Level 9.2 Lab Scanned Report REFERENCE LAB Home Meds Reported Medications Sertraline Hcl* (Sertraline Hcl*) 50 Mg Tablet, 50 MG PO DAILY, #30 TAB 08/07/18 Tramadol Hcl* (Ultram*) 50 Mg Tablet, 50 MG PO Q6H PRN for PAIN, TAB 08/07/18 Tocilizumab (Actemra) 80 Mg/4 Ml Vial, 80 MG IV [id number], VIAL 08/07/18 Albuterol Sulfate* (Proair HFA*) 8.5 Gm Hfa.aer.ad, 2 PUFF INH Q6H PRN for W HEEZING AND SOB, #1 INHALER 08/07/18 Tiotropium [place]* (Spiriva*) 18 Mcg Cap.w.dev, 1 CAP INHALATION DAILY, #30 CAP 08/07/18 Metoprolol Succinate* (Toprol XL*) 50 Mg Tab.er.24h, 50 MG PO DAILY, #30 TAB 08/07/18 Levothyroxine Sodium* (Levothyroxine Sodium*) 100 Mcg Tablet, 100 MCG PO BEFORE BREAKFAST, #30 TAB 08/07/18 Alprazolam* (Alprazolam*) 0.5 Mg Tablet, 0.5 MG PO Q8H PRN for ANXIETY, TAB 08/07/18 Zolpidem Tartrate* (Zolpidem Tartrate*) 5 Mg Tablet, 5 MG PO QHS PRN for INSOMNIA, #30 TAB 08/07/18 Calcium Citrate/Vitamin D (Citracal-Vitamin D 200 MG-250) 1 Each Tablet, 1 TAB PO BID, TAB 08/07/18 Folic Acid* (Folic Acid*) 1 Mg Tablet, 1 MG PO DAILY, TAB 08/07/18 Potassium Chloride (Klor-Con M20) 20 Meq Tab.prt.sr, 20 MEQ PO DAILY 08/07/18 Budesonide-Formoterol Fumarate* (Symbicort*) 160-4.5 Hfa.aer.ad, 2 PUFF INHALATION BID, #1 EACH 08/07/18 Meclizine Hcl* (Meclizine Hcl*) 25 Mg Tablet, 25 MG PO DAILY PRN for VERTIGO 11/18/12 Omeprazole* (Prilosec*) 40 Mg Capsule.dr, 40 MG PO DAILY 11/18/12 Discontinued Reported Medications Azathioprine* (Imuran*) 50 Mg Tab, 50 MG PO DAILY 05/14/13 Alendronate Sodium (Fosamax) 35 Mg Tablet, 35 MG PO 05/14/13 Ibuprofen* (Ibuprofen*) 600 Mg Tablet, 600 MG PO PRN 11/18/12 Aspirin (Aspirin) 81 Mg Chew, 81 MG PO DAILY 11/18/12 Metoprolol (Lopressor) 50 Mg Tablet, 50 MG PO DAILY 11/18/12 Benazepril Hcl* (Lotensin*) 40 Mg Tablet, 40 MG PO DAILY 11/18/12 [Planequil] No Conflict Check, 200 MG DAILY 11/18/12 Calcium Carbonate/Vitamin D2* (Os-Abel 250+D*) 1 Tab Tablet, 1 TAB PO DAILY 11/18/12 Tiotropium [place]* (Spiriva*) 18 Mcg Cap.w.dev, 18 MCG IH 11/18/12 Ondansetron Hcl* (Ondansetron Hcl*) 4 Mg Tablet, 4 MG PO PRN 11/18/12 Amlodipine Besylate* (Amlodipine Besylate*) 5 Mg Tablet, 5 MG PO DAILY 11/18/12 Gabapentin* (Gabapentin*) 300 Mg Capsule, 300 MG PO TID 11/18/12 Azathioprine (Azathioprine) 50 Mg Tablet, 50 MG PO DAILY 11/18/12 Medications Current Medications Lactated Ringer's 1,000 ml @ 80 mls/hr [id number] IV Last administered on 08/07/18at 15:40; Admin Dose 80 MLS/HR; Start 08/07/18 at 12:39 Oxycodone HCl (Roxicodone) 10 mg Q4H PRN PO .PAIN Last administered on 08/08/18at 04:31; Admin Dose 10 MG; Start 08/07/18 at 13:00 Oxycodone HCl (Roxicodone) 5 mg Q4H PRN PO .PAIN; Start 08/07/18 at 13:00 Ondansetron HCl (Zofran Inj) 4 mg Q4H PRN IV NAUSEA/VOMITING; Start 08/08/18 at 13:00 Cefazolin Sodium/ Dextrose 50 ml @ 100 mls/hr Q8H IVPB Last administered on 08/08/18at 00:42; Admin Dose 100 MLS/HR; Start 08/07/18 at 16:00; Stop 08/08/18 at 08:29 Celecoxib (Celebrex) 100 mg BID PO ; Start 08/08/18 at 09:00 Gabapentin (Neurontin) 100 mg TID PO Last administered on 08/07/18at 20:17; Admin Dose 100 MG; Start 08/07/18 at 14:00 Pantoprazole (Protonix Tab) 40 mg DAILY@06 PO Last administered on 08/08/18at 06:23; Admin Dose 40 MG; Start 08/08/18 at 06:00 Docusate Sodium (Colace) 200 mg BID PO ; Start 08/08/18 at 09:00; Stop 08/10/18 at 21:01 Magnesium Hydroxide (Milk Of Mag) 30 ml HS PRN PO .CONSTIPATION; Start 08/07/18 at 13:00 Ketorolac Tromethamine (Toradol) 15 mg Q6H PRN IV .PAIN Last administered on 08/07/18at 15:33; Admin Dose 15 MG; Start 08/07/18 at 13:00 Naloxone HCl (Narcan) 0.2 mg Q2M PRN IV .RESP RATE; Start 08/07/18 at 13:00 IV Flush (NS 3 ml) 3 ml per protocol IV ; Start 08/07/18 at 13:00 Aspirin (Halfprin) 81 mg BID PO ; Start 08/08/18 at 09:00 Albuterol (Ventolin Hfa) 2 puff Q6H PRN INH WHEEZING AND SOB Last administered on 08/07/18at 23:00; Admin Dose 2 PUFF; Start 08/07/18 at 17:30 Alprazolam (Xanax) 0.5 mg Q8H PRN PO ANXIETY Last administered on 08/08/18at 01:57; Admin Dose 0.5 MG; Start 08/07/18 at 17:30 Folic Acid (Folic Acid) 1 mg DAILY PO ; Start 08/08/18 at 09:00 Levothyroxine Sodium (Synthroid) 100 mcg BEFORE BREAKFAST PO Last administered on 08/08/18at 06:23; Admin Dose 100 MCG; Start 08/08/18 at 07:00 Meclizine HCl (Antivert) 25 mg DAILY PRN PO DIZZINESS; Start 08/07/18 at 17:30 Metoprolol Succinate (Toprol Xl) 50 mg DAILY PO ; Start 08/08/18 at 09:00 Potassium Chloride (Klor-Con 20) 20 meq DAILY PO ; Start 08/08/18 at 09:00 Sertraline HCl (Zoloft) 50 mg DAILY PO ; Start 08/08/18 at 09:00 Tramadol HCl (Ultram) 50 mg Q6H PRN PO PAIN; Start 08/07/18 at 17:30 Zolpidem Tartrate (Ambien) 5 mg QHS PRN PO INSOMNIA; Start 08/07/18 at 17:30 Miscellaneous Information 2 puff BID INHALATION ; Start 08/07/18 at 21:00; Status UNV Calcium/Vitamin D ([place]yster [place]/ Vit-D (500/200)) 1 tab BID PO Last administered on 08/07/18at 20:17; Admin Dose 1 TAB; Start 08/07/18 at 21:00 Tiotropium [place] (Spiriva) 1 inh DAILY INH ; Start 08/08/18 at 09:00 Guaifenesin (Mucinex) 600 mg BID PRN PO COUGH Last administered on 08/07/18at 23:00; Admin Dose 600 MG; Start 08/07/18 at 23:00 Assessment/Plan Hospital Course (Demo Recall) patient post op hip replacement with multiple medical issue including COPD and hypertension. pre-op meds ordered will follow with you thank you for participating and allowing us to participate in the care of our patient. ti Assessment/Plan (Daily) patient to ask re surgical site pain medically stable. will follow thank you MORAIMA Colindres MD Aug 08, 2018 07:56
[2018-08-08] MEDS: KETOROLAC 15 MG INJ IV PRN (08:05)
[2018-08-08] MEDS ORDERED: NON-FORMULARY/PATIENT OWN MED (Omeprazole* (Prilosec*) 40 MG) PO SCH (09:00)
[2018-08-08] MEDS: CELECOXIB 100 MG CAP PO SCH ×2 (09:34→20:17)
[2018-08-08] MEDS: GABAPENTIN 100 MG CAP PO SCH ×3 (09:35→20:17)
[2018-08-08] MEDS: FOLIC ACID 1 MG TAB PO SCH (09:35)
[2018-08-08] MEDS: CALCIUM/VITAMIN D (500/200) TAB PO SCH ×2 (09:35→20:17)
[2018-08-08] MEDS: DOCUSATE SODIUM 100 MG CAP PO SCH ×2 (09:37→20:16)
[2018-08-08] MEDS: ASPIRIN (EC) 81 MG TAB PO SCH ×2 (09:37→20:28)
[2018-08-08] MEDS: SERTRALINE 50 MG TAB PO SCH (09:37)
[2018-08-08] MEDS: POTASSIUM CHLORIDE (SR) 20 MEQ TAB PO SCH (09:40)
[2018-08-08] MEDS: METOPROLOL (XL) 50 MG TAB PO SCH (09:40)
[2018-08-08] MEDS ORDERED: ONDANSETRON 4 MG INJ IV PRN (13:00)
[2018-08-08 13:31] VITALS: BP 142/67; PULSE 69; RESP 18
[2018-08-08] MEDS: LACTATED RINGER'S 1,000 ML IV SCH (13:39)
[2018-08-08] MEDS: TIOTROPIUM 18 MCG CAPSULE INHA DEV INH SCH (13:40)
[2018-08-08 20:03] VITALS: BP 136/63; PULSE 66; RESP 20
[2018-08-09 01:54] VITALS: BP 138/66; PULSE 62; RESP 17
[2018-08-09] MEDS: LACTATED RINGER'S 1,000 ML IV SCH ×2 (02:09→14:39)
[2018-08-09] MEDS: LEVOTHYROXINE 100 MCG TAB PO SCH (05:54)
[2018-08-09] MEDS: PANTOPRAZOLE (EC) 40 MG TAB PO SCH (05:54)
[2018-08-09] MEDS: oxyCODONE 5 MG TAB PO PRN (05:57)
[2018-08-09 07:17] VITALS: BP 125/60; PULSE 59; RESP 18
[2018-08-09] MEDS: METOPROLOL (XL) 50 MG TAB PO SCH (09:20)
[2018-08-09] MEDS: TIOTROPIUM 18 MCG CAPSULE INHA DEV INH SCH (09:21)
[2018-08-09] MEDS: DOCUSATE SODIUM 100 MG CAP PO SCH (09:22)
[2018-08-09] MEDS: POTASSIUM CHLORIDE (SR) 20 MEQ TAB PO SCH (09:22)
[2018-08-09] MEDS: SERTRALINE 50 MG TAB PO SCH (09:22)
[2018-08-09] MEDS: CELECOXIB 100 MG CAP PO SCH (09:22)
[2018-08-09] MEDS: CALCIUM/VITAMIN D (500/200) TAB PO SCH (09:22)
[2018-08-09] MEDS: ASPIRIN (EC) 81 MG TAB PO SCH (09:23)
[2018-08-09] MEDS: FOLIC ACID 1 MG TAB PO SCH (09:23)
[2018-08-09] MEDS: GABAPENTIN 100 MG CAP PO SCH ×2 (09:23→15:16)
--- NOTE | 2018-08-09 09:31 | PN ---
Date/Time of Note Date/Time of Note DATE: 08/09/18 TIME: 09:29 Assessment/Plan Lines/Catheters IV Catheter Type (from Nrsg): Saline Lock Bolden in Place (from Nrsg): Yes Assessment/Plan Assessment/Plan The patient is stable after revision of her right hip replacement. She will continue physical therapy and is expected to go home today with home health care. The patient will follow-up in 2 weeks. Subjective 24 Hr Interval Summary Pain in the right hip Exam/Review of Systems Vital Signs Vitals Vital Signs Date Temp Pulse Resp B/P (MAP) Pulse Ox O2 O2 Flow FiO2 Time Delivery Rate 08/09/18 98.7 59 18 125/60 94 07:17 (81) 08/08/18 Room Air 04:34 08/07/18 2.0 13:32 Intake and Output 08/08/18 08/08/18 08/09/18 1515:00 23:00 07:00 IntakeIntake Total 420 ml 500 ml BalanceBalance 420 ml 500 ml Exam Free Text/Dictation Patient is awake and alert. Right hip incision and dressing are clean. There is no neurovascular deficit. Right lower extremity range of motion is slightly limited. Mild swelling is noted in the right thigh. No evidence of DVT or infection. Results Result Diagram: 08/09/18 0423 08/09/18 0423 ELEUTERIO LE Aug 09, 2018 09:31
--- NOTE | 2018-08-09 09:32 | PDOCDIS ---
Discharge Instructions DIAGNOSIS Discharge Diagnosis Revision of right JORDY CONDITION [id number] Patient Condition: Timvy0e Good HOME CARE INSTRUCTIONS: [id number] Diet Instructions: [id number] Regular ACTIVITY: [id number] Activity Restrictions: [id number] Avoid heavy lifting Do not Drive [id number] Bathing Restrictions: [id number] Shower FOLLOW UP/APPOINTMENTS Follow-up Plan 2 weeks ELEUTERIO LE Aug 09, 2018 09:32
[2018-08-09] MEDS ORDERED: GABA100C14 PO (09:39)
[2018-08-09] MEDS ORDERED: ASPI-1044 PO (09:39)
[2018-08-09] MEDS ORDERED: CELE100C PO (09:39)
--- NOTE | 2018-08-09 09:41 | CONS ---
Assessment/Plan Assessment/Plan Problems: (1) History of revision of total replacement of right hip joint Onset Date: ~ 08/07/2018 Status: Acute Comment: She is recuperating after an extensive revision nicely. I have legitimate expectations of good surgical outcome with good rehabilitation potential. No complications of surgery postop (2) COPD (chronic obstructive pulmonary disease) Status: Chronic Comment: She is symptomatic from this but progressing nicely and is stable with her medication regimen Qualifiers: COPD type: unspecified COPD Qualified Codes: J44.9 - Chronic obstructive pulmonary disease, unspecified (3) Acquired hypothyroidism Status: Chronic Comment: Stable on thyroid hormone replacement therapy (4) Essential hypertension Status: Chronic Comment: Adequate control (5) Abnormal liver function test Status: Chronic Comment: We will check baseline viral serologies as per NIH guidelines (6) Thrombocytopenia Status: Acute Comment: We will need to follow this as an outpatient, not impediment to discharge (7) Tobacco abuse Status: Chronic Comment: Re-counseled (8) Rheumatoid arthritis Status: Chronic Comment: Noted. Qualifiers: Rheumatoid arthritis location: multiple sites Rheumatoid factor presence: with rheumatoid factor Qualified Codes: M05.79 - Rheumatoid arthritis with rheumatoid factor of multiple sites without organ or systems involvement Consultation Date/Type/Reason Admit Date/Time Aug 07, 2018 at 07:30 Initial Consult Date August 07, 2018 Type of Consult Internal medicine Reason for Consultation Assistance with postoperative care in patient with revision of right total hip replacement; COPD; essential hypertension; see problem list Requesting Provider: ELEUTERIO LE Date/Time of Note DATE: 08/09/18 TIME: 09:37 24 HR Interval Summary Free Text/Dictation Patient is complaining of pain at the surgical site but reports she is otherwise doing relatively well Constitutional: no complaints (Denies fevers chills or sweats) Detailed Summary Eyes: no complaints Respiratory: no complaints (Using her inhalers but denies any change in her relative breathing patterns denies cough or wheezing) Cardiovascular: no complaints Gastrointestinal: no complaints Genitourinary: no complaints Musculoskeletal: other (Pain at right hip) Skin: no complaints Neurologic: no complaints Exam/Review of Systems Exam Vitals Vital Signs Date Temp Pulse Resp B/P (MAP) Pulse Ox O2 O2 Flow FiO2 Time Delivery Rate 08/09/18 98.7 59 18 125/60 94 07:17 (81) 08/08/18 Room Air 04:34 3/28/19 2.0 13:32 Intake and Output 08/08/18 08/08/18 08/09/18 1414:59 22:59 06:59 IntakeIntake Total 420 ml 500 ml BalanceBalance 420 ml 500 ml Exam Patient is up ambulating with walker with assistance of physical therapy moving slowly with an antalgic gait Constitutional: alert, oriented Head: normocephalic, atraumatic Respiratory: clear to auscultation, diminished breath sounds (Increased AP diameter and decreased I to E ratio) Cardiovascular: regular rate and rhythm, nl pulses Gastrointestinal: soft, nl liver, spleen, non-tender Results Result Diagram: 08/09/18 0423 08/09/18 0423 Results 24hrs Laboratory Tests Test 08/09/18 04:23 White Blood Count 6.4 Red Blood Count 3.32 L Hemoglobin 10.0 L Hematocrit 31.0 L Mean Corpuscular Volume 93.4 Mean Corpuscular Hemoglobin 30.1 Mean Corpuscular Hemoglobin Concent 32.3 Red Cell Distribution Width 15.4 H Platelet Count 78 L Mean Platelet Volume 10.4 Immature Granulocytes % 0.500 H Neutrophils % 69.3 Lymphocytes % 20.3 Monocytes % 9.3 Eosinophils % 0.3 Basophils % 0.3 Nucleated Red Blood Cells % 0.0 Immature Granulocytes # 0.030 Neutrophils # 4.5 Lymphocytes # 1.3 Monocytes # 0.6 Eosinophils # 0.0 Basophils # 0.0 Nucleated Red Blood Cells # 0.0 Sodium Level 141 Potassium Level 4.2 Chloride Level 107 Carbon Dioxide Level 26 Anion Gap 8 Blood Urea Nitrogen 28 H Creatinine 1.20 H Est Glomerular Filtrat Rate mL/min 44 L Glucose Level 98 Calcium Level 8.7 Medications Medication Current Medications Lactated Ringer's 1,000 ml @ 80 mls/hr [id number] IV Last administered on 08/07/18at 15:40; Admin Dose 80 MLS/HR; Start 08/07/18 at 12:39 Oxycodone HCl (Roxicodone) 10 mg Q4H PRN PO .PAIN Last administered on 08/09/18at 05:57; Admin Dose 10 MG; Start 08/07/18 at 13:00 Oxycodone HCl (Roxicodone) 5 mg Q4H PRN PO .PAIN; Start 08/07/18 at 13:00 Ondansetron HCl (Zofran Inj) 4 mg Q4H PRN IV NAUSEA/VOMITING; Start 08/08/18 at 13:00 Celecoxib (Celebrex) 100 mg BID PO Last administered on 08/09/18 09:22; Admin Dose 100 MG; Start 08/08/18 at 09:00 Gabapentin (Neurontin) 100 mg TID PO Last administered on 08/09/18 09:23; Admin Dose 100 MG; Start 08/07/18 at 14:00 Pantoprazole (Protonix Tab) 40 mg DAILY@06 PO Last administered on 08/09/18 05:54; Admin Dose 40 MG; Start 08/08/18 at 06:00 Docusate Sodium (Colace) 200 mg BID PO Last administered on 08/09/18 09:22; A dmin Dose 200 MG; Start 08/08/18 at 09:00; Stop 08/10/18 at 21:01 Magnesium Hydroxide (Milk Of Mag) 30 ml HS PRN PO .CONSTIPATION; Start 08/07/18 at 13:00 Ketorolac Tromethamine (Toradol) 15 mg Q6H PRN IV .PAIN Last administered on 08/08/18 08:05; Admin Dose 15 MG; Start 08/07/18 at 13:00 Naloxone HCl (Narcan) 0.2 mg Q2M PRN IV .RESP RATE; Start 08/07/18 at 13:00 IV Flush (NS 3 ml) 3 ml per protocol IV ; Start 08/07/18 at 13:00 Aspirin (Halfprin) 81 mg BID PO Last administered on 08/09/18 09:23; Admin Dose 81 MG; Start 08/08/18 at 09:00 Albuterol (Ventolin Hfa) 2 puff Q6H PRN INH WHEEZING AND SOB Last administered on 08/07/18 23:00; Admin Dose 2 PUFF; Start 08/07/18 at 17:30 Alprazolam (Xanax) 0.5 mg Q8H PRN PO ANXIETY Last administered on 08/08/18 01:57; Admin Dose 0.5 MG; Start 08/07/18 at 17:30 Folic Acid (Folic Acid) 1 mg DAILY PO Last administered on 08/09/18 09:23; Admin Dose 1 MG; Start 08/08/18 at 09:00 Levothyroxine Sodium (Synthroid) 100 mcg BEFORE BREAKFAST PO Last administered on 08/09/18 05:54; Admin Dose 100 MCG; Start 08/08/18 at 07:00 Meclizine HCl (Antivert) 25 mg DAILY PRN PO DIZZINESS; Start 08/07/18 at 17:30 Metoprolol Succinate (Toprol Xl) 50 mg DAILY PO Last administered on 08/09/18 09:20; Admin Dose 50 MG; Start 08/08/18 at 09:00 Potassium Chloride (Klor-Con 20) 20 meq DAILY PO Last administered on 08/09/18 09:22; Admin Dose 20 MEQ; Start 08/08/18 at 09:00 Sertraline HCl (Zoloft) 50 mg DAILY PO Last administered on 08/09/18 09:22; A dmin Dose 50 MG; Start 08/08/18 at 09:00 Tramadol HCl (Ultram) 50 mg Q6H PRN PO PAIN; Start 08/07/18 at 17:30 Zolpidem Tartrate (Ambien) 5 mg QHS PRN PO INSOMNIA Last administered on 08/08/18 21:53; Admin Dose 5 MG; Start 08/07/18 at 17:30 Miscellaneous Information 2 puff BID INHALATION ; Start 08/07/18 at 21:00; Status UNV Calcium/Vitamin D (Oyster Shell/ Vit-D (500/200)) 1 tab BID PO Last a dministered on 08/09/18 09:22; Admin Dose 1 TAB; Start 08/07/18 at 21:00 Tiotropium [place] (Spiriva) 1 inh DAILY INH Last administered on 08/09/18 09:21; Admin Dose 1 INH; Start 08/08/18 at 09:00 Guaifenesin (Mucinex) 600 mg BID PRN PO COUGH Last administered on 08/07/18 23:00; Admin Dose 600 MG; Start 08/07/18 at 23:00 MITCHELL HERNANDEZ MD Aug 09, 2018 09:41
[2018-08-09 13:24] VITALS: BP 102/55; PULSE 59; RESP 18
[2018-08-09] MEDS ORDERED: ARFORMOTEROL TARTRATE 15MCG/2 ML AMP INH SCH (20:00)
[2018-08-09] MEDS ORDERED: BUDESONIDE (NEB) 0.5MG/2ML AMP INH SCH (20:00)
== END 2018-08-09 19:00 | disposition home health service (06) | DRG 468 ==
LOC: REC 07:30 → MS1 15:20
PROVIDERS: ADMIT Orthopaedic Surgery; ATTEND Orthopaedic Surgery
PROC: 0SP90JZ Removal of Synthetic Substitute from Right Hip Joint, Open Approach (ICD-10-PCS; 2018-08-07)
PROC: 0SR904Z Replacement of Right Hip Joint with Ceramic on Polyethylene Synthetic Substitute, Open Approach (ICD-10-PCS; principal; 2018-08-07 10:00)
DX: T84.030A Mechanical loosening of internal right hip prosthetic joint, initial encounter (principal); J44.9 Chronic obstructive pulmonary disease, unspecified; M06.9 Rheumatoid arthritis, unspecified; I10 Essential (primary) hypertension; E03.9 Hypothyroidism, unspecified; Y83.2 Surgical operation with anastomosis, bypass or graft as the cause of abnormal reaction of the patient, or of later complication, without mention of misadventure at the time of the procedure; Z78.0 Asymptomatic menopausal state
CPT/HCPCS: 73530; 80048; 81001; 82728; 83540; 85025; 86803; 86850; 86900; 86901; 87070; 87081; 87086; 87340; 88300; 97116; 97162; 97165; 97530; C1713; C1762; C1776; J0171; J0690; J0735; J1100; J1885; J2405; J2795; J7120